=== PATIENT | male | born 1985 | race Caucasian/White ===

== ENCOUNTER 2017-03-15 22:42 | Emergency (ER) | payer BC, MEDICAID ==
[2017-03-15 23:08] VITALS: BP 107/77
[2017-03-16] MEDS ORDERED: Bacitracin Oint 1 GM U/D Packet TOP ONE (00:18)
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
== END 2017-03-16 00:50 | disposition left against medical advice (07) ==
LOC: JP.ED 22:42
DX: S61.512A Laceration without foreign body of left wrist, initial encounter (principal); Z87.891 Personal history of nicotine dependence; W18.02XA Striking against glass with subsequent fall, initial encounter; Y93.61 Activity, american tackle football
CPT/HCPCS: 12002; 36415; 80053; 85025; 99284; G0480; 99282-25

== ENCOUNTER 2017-03-23 11:52 | Emergency (ER) | payer BC ==
[2017-03-23 12:12] VITALS: BP 114/74
--- NOTE | 2017-03-23 12:40 | EDM.PDOC ---
ED HPI GENERAL MEDICAL PROBLEM - General Chief Complaint: Wound Recheck Stated Complaint: REMOVE STITCHES, LEFT WRIST Time Seen by Provider: 03/23/17 12:36 Source of Information: Reports: Patient, Old Records, RN Notes Reviewed History Limitations: Reports: No Limitations - History of Present Illness INITIAL COMMENTS - FREE TEXT/NARRATIVE: Doing well no issues, here for suture removal of left wrist sutures have been placed about 8 days - Related Data Allergies Allergy/AdvReac Type Severity Reaction Status Date / Time No Known Allergies Allergy Verified 03/15/17 23:29 Home Meds: Home Meds NK [No Known Home Meds] 03/15/17 [History] Past Medical History Neurological History: Reports: Brain Injury Other Neuro History: fell off [employer] swing and landed on on rock age 14 Social & Family History - Tobacco Use Smoking Status *Q: Former Smoker Used Tobacco, but Quit: Yes Month Tobacco Last Used: february, - Caffeine Use Caffeine Use: Reports: None - Alcohol Use Days Per Week of Alcohol Use: 3 Number of Drinks Per Day: 6 Total Drinks Per Week: 18 - Recreational Drug Use Recreational Drug Use: No ED ROS GENERAL - Review of Systems Review Of Systems: See Below Constitutional: Reports: No Symptoms Musculoskeletal: Reports: No Symptoms Skin: Reports: No Symptoms Neurological: Reports: No Symptoms ED EXAM, GENERAL - Physical Exam Exam: See Below Free Text/Narrative:: Examination of left wrist surgical wounds are clean dry and intact full range of motion all digits radial pulses 2+ no erythema no edema no anal palpation Course - Vital Signs Last Recorded V/S: Last Vital Signs Temp 97.5 F 03/23/17 12:10 Pulse 55 L 03/23/17 12:10 Resp 16 03/23/17 12:10 BP 114/74 03/23/17 12:10 Pulse Ox 97 03/23/17 12:10 - Orders/Labs/Meds Orders: Active Orders 24 hr Category Date Time Status Ricardo Sutures Removal [RC] ROUTINE Oth 03/23/17 12:37 Active Departure - Departure Time of Disposition: 13:00 Disposition: Home, Self-Care 01 Condition: Good Clinical Impression: Encounter for removal of sutures - Discharge Information Referrals: PCP,None [Primary Care Provider] - Forms: ED Department Discharge Additional Instructions: Follow-up with primary care as needed - My Orders Last 24 Hours: My Active Orders 03/23/17 12:37 Ricardo Sutures Removal [RC] ROUTINE - Assessment/Plan Last 24 Hours: My Active Orders 03/23/17 12:37 Parker Sutures Removal [RC] ROUTINE Plan: Assessment Acuity = acute Site and laterality = suture removal left wrist Etiology = complication from laceration Manifestations = none Location of injury = Home Lab values = none Plan Follow-up with primary care as needed Patient was in agreement with the plan all questions were answered, they were instructed to return to the emergency department or call for worsening symptoms. This note was dictated using [employer] voice recognition software please call with any questions.
== END 2017-03-23 13:00 | disposition home or self-care (01) ==
LOC: JP.ED 11:52
DX: S61.512D Laceration without foreign body of left wrist, subsequent encounter (principal); Z87.891 Personal history of nicotine dependence; W18.02XD Striking against glass with subsequent fall, subsequent encounter
CPT/HCPCS: 99283

== ENCOUNTER 2017-04-28 06:14 | Emergency (ER) | payer MEDICAID ==
[2017-04-28 06:45] VITALS: BP 122/56
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
--- NOTE | 2017-04-28 08:53 | CR ---
Ossific density at the dorsal aspect of the navicular with lucency within it. Margins appear fairly well-corticated this may indicate a remote avulsion fragment or degenerative. Acute avulsion fragmen t not excluded correlate for point tenderness. The remainder of the foot is intact.
--- NOTE | 2017-04-28 08:54 | CR ---
Ankle is intact. No evidence for ankle fracture.
== END 2017-04-28 07:47 | disposition home or self-care (01) ==
LOC: JP.ED 06:14
DX: S99.921A Unspecified injury of right foot, initial encounter (principal); F17.210 Nicotine dependence, cigarettes, uncomplicated; Y04.0XXA Assault by unarmed brawl or fight, initial encounter
CPT/HCPCS: 73610-26-RT; 73610-RT; 73630-26-RT; 73630-RT; 99283; 99284

== ENCOUNTER 2017-11-25 05:10 | Emergency (ER) | payer MEDICAID ==
[2017-11-25 05:21] VITALS: BP 143/101
[2017-11-25] MEDS ORDERED: Ketorolac 60 MG/2 ML SDV IM ONE (05:31)
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
--- NOTE | 2017-11-27 09:54 | CR ---
Wrist 2V Rt INDICATION: Wrist pain COMPARISON: None FINDINGS: No fracture or osseous lesion is identified. The articular surfaces are smooth. There is so me overlap of the scapholunate joint tear. This is likely positional. Impression: No fracture identified. There is some overlap in the scapholunate joint . This is likely positional. If clinical symptomatology persists or increases repeat examination is recommended
== END 2017-11-25 06:14 | disposition home or self-care (01) ==
LOC: JP.ED 05:10
DX: S63.501A Unspecified sprain of right wrist, initial encounter (principal); F17.210 Nicotine dependence, cigarettes, uncomplicated; X58.XXXA Exposure to other specified factors, initial encounter; Y93.72 Activity, wrestling
CPT/HCPCS: 73100; 96372; 99284; J1885

== ENCOUNTER 2022-09-08 06:30 | Day surgery (SDC) | payer MEDICAID ==
[2022-09-08] MEDS ORDERED: Midazolam 1 MG/ML 2 ML SDV ONE (07:25)
[2022-09-08] MEDS ORDERED: Propofol 200 MG/20 ML SDV ONE ×2 (07:25→08:00)
[2022-09-08] MEDS ORDERED: fentaNYL 100 MCG/2 ML SDV ONE (07:25)
[2022-09-08] MEDS ORDERED: Sodium Chloride 0.9% 1,000 ML IV SCH (08:30)
[2022-09-08] MEDS ORDERED: Ondansetron 4 MG/2 ML SDV IVPUSH ONE (09:08)
[2022-09-08 09:21] VITALS: BP 113/65; PULSE 44
[2022-09-08] MEDS ORDERED: Scopolamine 1.5 MG Transdermal Patch TOP SCH (09:30)
== END 2022-09-08 08:58 | disposition home or self-care (01) ==
LOC: JP.SDS 06:30
PROVIDERS: ATTEND Surgery
DX: Z12.11 Encounter for screening for malignant neoplasm of colon (principal); K57.30 Diverticulosis of large intestine without perforation or abscess without bleeding; Z79.899 Other long term (current) drug therapy
CPT/HCPCS: 45378; A9270; J2250; J2405; J2704; J3010